=== PATIENT | female | born 1990 | race Caucasian/White ===

== ENCOUNTER 2019-06-19 02:23 | Emergency (ER) | payer MEDICAID, OTHER ==
[~2019-06-19] VITALS: Ht 152.4 cm; Wt 50.0 kg
[~2019-06-19 02:23] MED LIST: CEPH-571 PO; CYCL-1 PO
[2019-06-19 02:57] LABS: CLARITY,URINE SLIGHTLY CLOUDY (Clear); COLOR,URINE YELLOW (Yellow); GLUCOSE, URINE NEGATIVE (Neg); KETONES,URINE NEGATIVE (Neg); LEUKOCYTE ESTERASE ,URINE NEGATIVE (Neg); NITRITES, URINE POSITIVE (Neg); OCCULT BLOOD,URINE NEGATIVE (Neg); PROTEIN,URINE NEGATIVE (Neg); UROBILINOGEN,URINE 0.2 E.U/dL (0.2-1.0)
[2019-06-19 02:58] LABS: URINE HCG NEGATIVE (NEG)
[2019-06-19 03:09] LABS: UA COLLECTION TYPE CLN CATCH MIDSTREAM
[2019-06-19 03:11] LABS: BACTERIA,URINE 4+ /HPF (Neg); RBC,URINE 0-2 /HPF (0-2); SQUAMOUS EPITHELIAL CELL,UR MANY /LPF (FEW)
[2019-06-19] MEDS ORDERED: CEPH500C5 PO (03:14)
[2019-06-19 03:28] VITALS: BP 116/69
== END 2019-06-19 03:24 | disposition home or self-care (01) ==
LOC: ER 02:23
DX: N39.0 Urinary tract infection, site not specified (principal); F17.200 Nicotine dependence, unspecified, uncomplicated; F15.90 Other stimulant use, unspecified, uncomplicated; F11.90 Opioid use, unspecified, uncomplicated; Z79.899 Other long term (current) drug therapy
CPT/HCPCS: 81001; 81025; 99283

== ENCOUNTER 2019-09-02 22:57 | Emergency (ER) | payer MEDICAID ==
[~2019-09-02] VITALS: Ht 152.4 cm; Wt 47.7 kg
[~2019-09-02 22:57] MED LIST changes: +CEPH500C5 PO
[2019-09-02 23:45] LABS: URINE HCG POSITIVE (NEG)
[2019-09-03 00:40] VITALS: BP 111/52
[2019-09-03 11:28] LABS: URINE AMPHETAMINE SCREEN POSITIVE (Neg); URINE BARBITUATE SCREEN NEGATIVE (Neg); URINE BENZODIAZEPINES SCREEN NEGATIVE (Neg); URINE CANNABINOID SCREEN NEGATIVE (Neg); URINE COCAINE SCREEN NEGATIVE (Neg); URINE METHADONE SCREEN NEGATIVE (Neg); URINE OPIATE SCREEN POSITIVE (Neg); URINE PHENCYCLIDINE SCREEN NEGATIVE (Neg)
== END 2019-09-03 00:41 | disposition home or self-care (01) ==
LOC: ER 22:58
DX: Z32.01 Encounter for pregnancy test, result positive (principal); F11.90 Opioid use, unspecified, uncomplicated; Z79.899 Other long term (current) drug therapy
CPT/HCPCS: 80305; 81025; 99283

== ENCOUNTER 2020-02-26 00:42 | Emergency (ER) | payer MEDICAID ==
[~2020-02-26] VITALS: Ht 152.4 cm; Wt 56.8 kg
[2020-02-26 01:03] VITALS: BP 126/90
[2020-02-26] MEDS ORDERED: AMOX500C2 PO (01:44)
[2020-02-26] MEDS ORDERED: acetaminophen 325mg tablet PO ONE (01:45)
== END 2020-02-26 02:05 | disposition home or self-care (01) ==
LOC: ER 00:42
DX: O26.893 Other specified pregnancy related conditions, third trimester (principal); K08.89 Other specified disorders of teeth and supporting structures; O99.323 Drug use complicating pregnancy, third trimester; F11.90 Opioid use, unspecified, uncomplicated; Z79.899 Other long term (current) drug therapy; Z3A.36 36 weeks gestation of pregnancy
CPT/HCPCS: 99283

== ENCOUNTER 2020-03-24 01:38 | Emergency (ER) | payer MEDICAID ==
[~2020-03-24] VITALS: Ht 152.4 cm; Wt 50.0 kg
[~2020-03-24 01:38] MED LIST changes: +AMOX500C2 PO
[2020-03-24] MEDS ORDERED: CLIN-97 PO (01:53)
[2020-03-24] MEDS ORDERED: ibuprofen tablet 400 MG TABLET PO ONE (01:55)
[2020-03-24 02:05] VITALS: BP 124/96
== END 2020-03-24 02:06 | disposition home or self-care (01) ==
LOC: ER 01:39
DX: K02.9 Dental caries, unspecified (principal); F15.90 Other stimulant use, unspecified, uncomplicated; F11.90 Opioid use, unspecified, uncomplicated; Z79.899 Other long term (current) drug therapy
CPT/HCPCS: 99283

== ENCOUNTER 2020-08-13 03:25 | Emergency (ER) | payer MEDICAID ==
[~2020-08-13] VITALS: Ht 152.4 cm; Wt 50.0 kg
[~2020-08-13 03:25] MED LIST changes: -AMOX500C2 PO; -CEPH500C5 PO; +CLIN-97 PO
[2020-08-13] MEDS ORDERED: ketorolac tromethamine 15mg/ml inj. IV ONE (03:50)
[2020-08-13] MEDS ORDERED: normal saline 1000ML IV soln IVB ONE (03:50)
[2020-08-13 04:47] LABS: BASOPHILS % (AUTO) 0.2 % (0-1); EOSINOPHILS % (AUTO) 0 % (0-6); HEMOGLOBIN 10.9 g/dl (12.0-16.0); LYMPHOCYTES # (AUTO) 0.6 X10'3 (1.1-4.8); MEAN CORPUSCULAR HEMOGLOBIN 27.8 PG (27.0-31.0)
[2020-08-13 04:49] LABS: HEMATOCRIT 31.4 % (35.0-45.0); LYMPHOCYTES % (AUTO) 5.7 % (21-51); MEAN CORPUSCULAR HGB CONC 34.6 g/dL (33.0-36.5); MEAN CORPUSCULAR VOLUME 80.4 FL (78-98); MEAN PLATELET VOLUME 7.6 FL (7.4-10.4); MONOCYTES # (AUTO) 2.1 X10'3 (0-0.9); NEUTROPHILS # (AUTO) 8.4 X10'3 (1.8-7.7); NEUTROPHILS % (AUTO) 75.1 % (42-75); PLATELET COUNT 201 X10'3 (140-440); RED BLOOD COUNT 3.91 X10'6 (4.20-5.60); RED CELL DISTRIBUTION WIDTH 13.8 % (11.5-14.5); WHITE BLOOD COUNT 11.2 X10'3 (4.5-11.0)
[2020-08-13 04:58] LABS: ANION GAP 12 (8-16); BLOOD UREA NITROGEN 10 MG/DL (7-18); BUN/CREATININE RATIO 13.2 (6.6-38.0); CALCIUM 7.7 MG/DL (8.5-10.1); CHLORIDE 94 MMOL/L (99-107); CREATININE 0.76 MG/DL (0.40-0.90); GLUCOSE 97 MG/DL (70-104); SODIUM 129 MMOL/L (135-145); TOTAL CARBON DIOXIDE 23.5 MMOL/L (24-32); eGFR 89 ML/MIN
[2020-08-13 04:59] LABS: ALANINE AMINOTRANSFERASE 36 U/L (12-78); ALBUMIN 2.4 G/DL (3.4-5.0); ALBUMIN/GLOBULIN RATIO 0.6 (1.1-1.5); ALKALINE PHOSPHATASE 124 IU/L (46-116); ASPARTATE AMINO TRANSFERASE 29 U/L (10-37); BILIRUBIN,TOTAL 0.7 MG/DL (0.1-1.0); LIPASE < 50 U/L (73-393); TOTAL PROTEIN 6.4 G/DL (6.4-8.2)
[2020-08-13] MEDS ORDERED: potassium Cl 20 mEq SR tablet PO ONE (05:05)
[2020-08-13 05:51] LABS: URINE HCG NEGATIVE (NEG)
[2020-08-13] MEDS ORDERED: IBUP-1985 PO (05:55)
[2020-08-13 05:57] LABS: CLARITY,URINE CLOUDY (Clear); COLOR,URINE YELLOW (Yellow); GLUCOSE, URINE NEGATIVE (Neg); KETONES,URINE 40 mg/dl (Neg); LEUKOCYTE ESTERASE ,URINE MODERATE (Neg); NITRITES, URINE POSITIVE (Neg); OCCULT BLOOD,URINE LARGE (Neg); PROTEIN,URINE 100 mg/dl (Neg)
[2020-08-13 06:02] LABS: UA COLLECTION TYPE CLN CATCH MIDSTREAM
[2020-08-13 06:05] LABS: BACTERIA,URINE 4+ /HPF (Neg); MUCUS STRANDS NONE SEEN /LPF (Neg); SQUAMOUS EPITHELIAL CELL,UR MANY /LPF (FEW); WBC,URINE TNTC /HPF (0-4)
[2020-08-13] MEDS ORDERED: CEPH500C5 PO (06:09)
[2020-08-13] MEDS ORDERED: CefTRIAXone/D5W-Rocephin 1gm 50 ML IV ONE (06:10)
[2020-08-13 06:13] LABS: PLATELET ESTIMATE NORMAL; TOTAL CELLS COUNTED 100
[2020-08-13 06:14] LABS: LARGE PLATELETS FEW; TOXIC GRANULATION 1+
[2020-08-13 06:32] VITALS: BP 106/65
== END 2020-08-13 07:32 | disposition home or self-care (01) ==
LOC: ER 03:26
DX: M54.5 Low back pain (principal); E87.1 Hypo-osmolality and hyponatremia; E46 Unspecified protein-calorie malnutrition; N39.0 Urinary tract infection, site not specified; R11.2 Nausea with vomiting, unspecified; F15.90 Other stimulant use, unspecified, uncomplicated; F17.200 Nicotine dependence, unspecified, uncomplicated; F11.90 Opioid use, unspecified, uncomplicated; Z87.440 Personal history of urinary (tract) infections; Z79.2 Long term (current) use of antibiotics; Z79.899 Other long term (current) drug therapy; Z68.21 Body mass index [BMI] 21.0-21.9, adult
CPT/HCPCS: 36415; 80053; 81001; 81025; 83690; 85007; 85025; 96361; 96365; 96375; 99284; J0696; J1885; J7030

== ENCOUNTER 2021-03-26 02:06 | Emergency (ER) | payer MEDICAID ==
[~2021-03-26] VITALS: Ht 152.4 cm; Wt 45.0 kg
[~2021-03-26 02:06] MED LIST changes: +CEPH-585 PO; +IBUP-1985 PO
--- NOTE | 2021-03-26 02:29 | NUR ---
PT presents with lower back/sacral pain after tripping over a tomato can box in the middle of the floor at a [employer] with her grandmother present. States she fell directly backward onto her sacrum. Pt has no other c/o and is ambulatory to the hospital with full ROM. Pt denies hx of back pain/issues. Pt AOx4 GCS 15 VSS. Will CTM.
[2021-03-26] MEDS ORDERED: ibuprofen tablet 400 MG TABLET PO ONE (02:40)
[2021-03-26] MEDS ORDERED: acetaminophen 325mg tablet PO ONE ×2 (02:40→02:55)
[2021-03-26 03:00] VITALS: BP 131/68
== END 2021-03-26 03:01 | disposition home or self-care (01) ==
LOC: ER 02:06
DX: S30.0XXA Contusion of lower back and pelvis, initial encounter (principal); M54.5 Low back pain; F17.200 Nicotine dependence, unspecified, uncomplicated; Z87.440 Personal history of urinary (tract) infections; Z79.2 Long term (current) use of antibiotics; Z79.899 Other long term (current) drug therapy; W01.0XXA Fall on same level from slipping, tripping and stumbling without subsequent striking against object, initial encounter; Y93.89 Activity, other specified; Y92.89 Other specified places as the place of occurrence of the external cause; Y99.8 Other external cause status
CPT/HCPCS: 99284

== ENCOUNTER 2021-10-10 20:13 | Emergency (ER) | payer MEDICAID ==
[~2021-10-10] VITALS: Ht 152.4 cm; Wt 50.0 kg
[~2021-10-10 20:13] MED LIST changes: -CEPH-585 PO
[2021-10-10 20:16] VITALS: BP 114/66
== END 2021-10-11 05:55 | disposition home or self-care (01) ==
LOC: ER 20:14
DX: K04.7 Periapical abscess without sinus (principal); Z53.21 Procedure and treatment not carried out due to patient leaving prior to being seen by health care provider

== ENCOUNTER 2022-12-04 20:57 | Emergency (ER) | payer MEDICAID ==
[~2022-12-04] VITALS: Ht 152.4 cm; Wt 47.7 kg
[2022-12-04 21:11] VITALS: BP 119/75
== END 2022-12-05 01:22 | disposition left against medical advice (07) ==
LOC: ER 20:58
DX: N89.8 Other specified noninflammatory disorders of vagina (principal); Z53.21 Procedure and treatment not carried out due to patient leaving prior to being seen by health care provider
CPT/HCPCS: 99281

== ENCOUNTER 2024-07-22 19:09 | Emergency (ER) | payer MEDICAID ==
[~2024-07-22] VITALS: Ht 152.4 cm; Wt 55.9 kg
[2024-07-22] MEDS ORDERED: IBUP-862 PO (19:23)
[2024-07-22] MEDS ORDERED: AMOX-117 PO (19:23)
[2024-07-22] MEDS: CefTRIAXone 1000mg IM Kit (w/lidocaine diluent) IM ONE (19:29)
[2024-07-22 19:37] VITALS: BP 130/76; PULSE 111; RESP 18; TEMP 99; O2SAT 99
== END 2024-07-22 19:44 | disposition home or self-care (01) ==
LOC: ER 19:10
DX: K04.7 Periapical abscess without sinus (principal)
CPT/HCPCS: 96372; 99283; J0696

== ENCOUNTER 2024-11-27 04:32 | Emergency (ER) | payer MEDICAID ==
[~2024-11-27] VITALS: Ht 152.4 cm; Wt 56.2 kg
[~2024-11-27 04:32] MED LIST changes: +IBUP-862 PO
[2024-11-27 04:37] VITALS: BP 114/68; PULSE 111; RESP 18; TEMP 98.2; O2SAT 99
== END 2024-11-27 05:45 | disposition left against medical advice (07) ==
LOC: ER 04:32
DX: S41.112A Laceration without foreign body of left upper arm, initial encounter (principal); Z53.21 Procedure and treatment not carried out due to patient leaving prior to being seen by health care provider; X58.XXXA Exposure to other specified factors, initial encounter; Y93.89 Activity, other specified; Y92.89 Other specified places as the place of occurrence of the external cause; Y99.8 Other external cause status

== ENCOUNTER 2024-12-04 11:46 | Emergency (ER) | payer MEDICAID ==
[~2024-12-04] VITALS: Ht 152.4 cm; Wt 55.2 kg
[2024-12-04 11:55] VITALS: BP 108/70; PULSE 107; RESP 16; O2SAT 100
--- NOTE | 2024-12-04 13:35 | Physician Documentation ---
History of Present Illness ~ Chief Complaint: Medical Clearance Stated Complaint: MED CLEARANCE [facility] DISCOVERY Time Seen by MD: 12:18 Primary Medical Doctor: NONE HPI The patient is seen today with complaints of needing of referral as well as med clearance to go to [facility] or any other drug rehab program. Patient currently denies any chest pain, shortness of breath, abdominal pain, nausea, vomiting, diarrhea. Patient has no other concern or complaint at this time and denies any series or concerning medical problems or issues. Patient was also concerned about STD testing and did leave a urine sample to test for gonorrhea or chlamydia. Tetanus within 5 years?: Yes Medication Reconciliation Allergies: Coded Allergies: No Known Allergies (Unverified , 07/22/24) Scheduled Cephalexin (Keflex), 1 CAP PO Q6H Clindamycin HCL* (Clindamycin HCL*), 1 CAP PO Q6H Ibuprofen (Ibu), 1 TAB PO Q6H Scheduled PRN Cyclobenzaprine* (Cyclobenzaprine*), 1 TABLET PO Q8H PRN for muscle spasms Ibuprofen (Ibuprofen), 1 TAB PO Q8H PRN for pain Past Medical History Past Medical History: Hemorrhoids, UTI Past Surgical History: no surgical history Alcohol Use: None Drug Use: none Lives with: Family Lives In: Home Occupation: employed Review of Systems Constitutional: Denies: chills, fever, weakness Eyes: Denies: pain, blurred vision ENT: Denies: ear pain, nose pain, throat pain, mouth pain Respiratory: Denies: cough, shortness of breath Cardiovascular: Denies: chest pain, palpitations Gastrointestinal: Denies: abdominal pain, nausea, vomiting Genitourinary: Denies: burning, dysuria Female Genitalia: Denies: vaginal discharge, pelvic pain Neurological: Denies: headache, dizziness Musculoskeletal: Denies: pain, swelling Integumentary: Denies: rash, lesions Allergic/Immunologic: Denies: hives, itching Hematologic/Lymphatic: Denies: no symptoms reported Psychiatric: Denies: depression, anxiety Physical Exam Vital Signs: Temperature: 98.0, Source: Temporal, Heart Rate: 107, Respiratory Rate: 16, BP: 108/70, Pulse Oximetry: 100, Weight: 55.200 Oxygen Flow Rate: 0 Physical Exam General: Awake and Alert, no acute distress. HEENT: Conjunctiva pink, Sclera clear, Mucus Membranes moist. Neck: Supple without masses and tenderness. Resp: Unlabored. Lungs clear to auscultation bilaterally. Heart: Regular Rate and rhythm, normal S1 and S2 without murmur, rub or gallop. Abdomen: Soft and non tender no organomegaly Extremities: No cyanosis,clubbing or edema. Skin: Warm and Dry. Progress Results/Orders Results/Orders Vital Signs 12/04/24 11:55 Temp 98.0 Pulse 107 Resp 16 B/P (MAP) 108/70 Pulse Ox 100 O2 Flow Rate 0 Medical Decision Making Findings The patient is seen today with complaints of needing of referral as well as med clearance to go to [facility] or any other drug rehab program. Patient currently denies any chest pain, shortness of breath, abdominal pain, nausea, vomiting, diarrhea. Patient has no other concern or complaint at this time and denies any series or concerning medical problems or issues. Patient did have urine sample sent for testing for gonorrhea chlamydia and will follow up afterwards as needed. Patient is medically cleared to enter [facility] drug rehab program and/or any other drug rehab program in the surrounding area. Rita Parra refer this patient Teena Ayala to the drug rehab program. Patient will return to ED with any worsening, concerning or changing symptoms. Departure Disposition: 01 HOME / SELF CARE / HOMELESS Impression: Primary Impression: General medical exam Additional Impressions: Polysubstance (including opioids) dependence with physiol dependence Methamphetamine abuse Condition: Stable Discharge Instructions: Medical Screening Exam Additional Instructions: Patient is medically cleared to enter [facility] drug rehab program and/or any other drug rehab program in the surrounding area. Rita Parra refer this patient Teena Ayala to the drug rehab program. Patient will return to ED with any worsening, concerning or changing symptoms. Referrals: NO PRIMARY CARE PROVIDER (PCP) Signature Scribe Signature: No scribe Attestation: no scribe KIMBERLEE PARRA PAC December 04, 2024 13:35
[2024-12-04 13:45] VITALS: TEMP 98
== END 2024-12-04 13:48 | disposition home or self-care (01) ==
LOC: ER 11:46
DX: F15.10 Other stimulant abuse, uncomplicated (principal); F19.20 Other psychoactive substance dependence, uncomplicated; Z79.899 Other long term (current) drug therapy
CPT/HCPCS: 99281

== ENCOUNTER 2025-04-19 01:35 | Emergency (ER) | payer MEDICAID ==
[~2025-04-19] VITALS: Ht 152.4 cm; Wt 55.1 kg
[~2025-04-19 01:35] MED LIST changes: +CLIN-224 PO; -CLIN-97 PO; -IBUP-1985 PO; +IBUP600T52 PO
--- NOTE | 2025-04-19 02:50 | Physician Documentation ---
History of Present Illness ~ Chief Complaint: Constipation Stated Complaint: CONSTIPATED Time Seen by MD: 02:49 Primary Medical Doctor: NONE Mode of Arrival: POV, Ambulatory HPI Patient presents to the emergency room for evaluation of constipation. She has history of constipation. He has taken two tablets of constipation medication without relief. She does endorse opioid use. No fevers. No problems urinating Medication Reconciliation Allergies: Coded Allergies: No Known Allergies (Unverified , 07/22/24) Scheduled Cephalexin (Keflex), 1 CAP PO Q6H Clindamycin HCL* (Clindamycin HCL*), 1 CAP PO Q6H Ibuprofen (Ibu), 1 TAB PO Q6H Scheduled PRN Cyclobenzaprine* (Cyclobenzaprine*), 1 TABLET PO Q8H PRN for muscle spasms Ibuprofen (Ibuprofen), 1 TAB PO Q8H PRN for pain Past Medical History Past Medical History: Hemorrhoids, UTI Past Surgical History: no surgical history Alcohol Use: None Drug Use: none Lives with: Family Lives In: Home Occupation: employed Review of Systems ROS All review of systems negative except as per HPI Physical Exam Vital Signs: Temperature: 97.9, Source: Oral, Heart Rate: 95, Respiratory Rate: 16, BP: 118/73, Pulse Oximetry: 98, Weight: 55.100 Oxygen Flow Rate: 0 Physical Exam General: Patient is awake, alert, oriented x4 in no acute distress Head: Normocephalic and atraumatic. Eyes: Conjunctival normal. EOMI. PERRL. ENT: Mucous membranes moist. Neck: Supple, trachea is midline. Chest: Clear to auscultation bilaterally without rales, rhonchi, or wheezes. There is no accessory muscle use or retractions. Cardiac: RRR without murmurs, gallops, or rubs. Abd: Soft, nondistended, nontender, with normoactive bowel sounds. No guarding, rebound, or rigidity. Progress Results/Orders Results/Orders Orders - IBAN FRANCISCO MD Methylnaltrexone Br Inj (Relistor Inj (04/19/25 02:55) Bisacodyl Delayed-Release Tab (Dulcolax (04/19/25 02:55) Vital Signs 04/19/25 04/19/25 01:39 02:23 Temp 97.9 Pulse 95 Resp 16 16 B/P (MAP) 118/73 Pulse Ox 98 O2 Flow Rate 0 Medical Decision Making Findings Patient presents to the emergency room for evaluation of constipation that has per HPI. Differentials include but are not limited to constipation, small-bowel obstruction, cauda equina, dehydration. Patient that has nontoxic appearing with no symptoms other than constipation for cauda equina therefore I do not feel patient requires investigation into cauda equina. Patient uses opioids and this is likely contributing to her constipation and this was discussed with her that has well as increased water and taken interest constipation medication Departure Disposition: HOME / SELF CARE / HOMELESS Impression: Primary Impression: Constipation Condition: Stable Discharge Instructions: Constipation, Adult Additional Instructions: Double your efforts of drinking water. Increase constipation medications until having bowel movements as discussed Referrals: NO PRIMARY CARE PROVIDER (PCP) Prescriptions Bisacodyl (Dulcolax) 5 Mg Tablet.dr 4 TAB PO ONCE for constipation for 1 Day, #4 TAB 0 Refills Prov: IBAN FRANCISCO MD 04/19/25 Polyethylene Glycol 3350 (Miralax) 17 Gram/Dose Powder 17 GM PO DAILY for constipation, #255 GM 0 Refills dissolve in water Prov: IBAN FRANCISCO MD 04/19/25 Signature Scribe Signature: No scribe Attestation: The note accurately reflects work and decisions made by me.Iban Francisco MD 04/19/25 02:58 IBAN FRANCISCO MD Apr 19, 2025 02:50
[2025-04-19] MEDS ORDERED: POLY119P2 PO (02:58)
[2025-04-19] MEDS ORDERED: BISA-78 PO (02:58)
[2025-04-19] MEDS: methylnaltrexone br 12mg/0.6ml inj***SubQ only SQ ONE (03:09)
[2025-04-19] MEDS: bisacodyl 5mg tablet.DR PO ONE (03:31)
[2025-04-19 03:34] VITALS: BP 118/73; PULSE 95; RESP 16; TEMP 97.9; O2SAT 98
== END 2025-04-19 03:35 | disposition home or self-care (01) ==
LOC: ER 01:35
DX: K59.00 Constipation, unspecified (principal); F11.90 Opioid use, unspecified, uncomplicated
CPT/HCPCS: 96372; 99283; J2212